=== PATIENT | female | born 1940 | race African-American/Black ===

== ENCOUNTER 2024-07-01 20:14 | Inpatient (IN) | payer MEDICARE, OTHER ==
[~2024-07-01] VITALS: Ht 165.1 cm; Wt 53.5 kg
[~2024-07-01 20:14] MED LIST: ATOR10TA69 PO; DIGO125T80 PO; FURO20TA4 PO; GABA-529 PO; LACO100T2 MT; SPIR25TA6 PO; TRAZ-251 MT; WARF3TAB58 PO
[2024-07-02 00:33] LABS: BASOPHILS % 0.6 % (0.0-2.0); EOSINOPHILS % 0.1 % (0.0-5.0); HEMOGLOBIN. 12.3 g/dL (12.0-16.0); LYMPHOCYTES % 17.2 % (20.0-50.0); MEAN CORPUSCULAR HGB CONC 33.3 g/dL (31.0-37.0); MEAN CORPUSCULAR VOLUME 93.1 fL (81.0-99.0); MEAN PLATELET VOLUME 8.3 fl (7.4-10.4); MONOCYTES % 8.6 % (2.0-8.0); NEUTROPHILS % 73.5 % (40.0-76.0); PLATELET 76 x1000/uL (130-400); RED BLOOD CELL COUNT 3.98 mill/uL (4.2-5.4); RED CELL DISTRIBUTION WIDTH 14.6 % (11.6-14.6); WHITE BLOOD COUNT 2.8 x1000/uL (4.5-11.0)
[2024-07-02 00:45] LABS: CHLORIDE 100 mEq/L (98-107); POTASSIUM 4.5 mEq/L (3.5-5.1); SODIUM 135 mEq/L (136-145)
[2024-07-02 00:46] LABS: INR 2.5; PROTHROMBIN TIME 24.8 sec (9.6-11.0)
[2024-07-02 00:48] LABS: CALCIUM 9.2 mg/dL (8.7-10.4); CARBON DIOXIDE 26 mEq/L (21-32)
[2024-07-02 00:53] LABS: CREATININE 0.9 mg/dL (0.6-1.0); GLUCOSE 98 mg/dL (70-105); UREA NITROGEN BLOOD 11 mg/dL (9-23)
[2024-07-02 00:55] LABS: ALANINE AMINOTRANSFERASE 42 IU/L (10-49); ALBUMIN 3.8 g/dL (3.2-4.8); ASPARTATE AMINOTRANSFERASE 47 IU/L (<34); BILIRUBIN DIRECT 0.6 mg/dL (<=3.0); BILIRUBIN TOTAL 1.5 mg/dL (0.1-1.0)
[2024-07-02 02:09] LABS: DIGOXIN 0.8 ng/mL (0.8-2.0); TROPONIN I HIGH SENSITIVITY 32 ng/L (3.0-34)
[2024-07-02 15:53] VITALS: BP 135/71; PULSE 83; RESP 18; TEMP 36.5
[2024-07-02 16:00] VITALS: BP 135/71; PULSE 83; RESP 18; TEMP 36.4; O2SAT 97
[2024-07-02] MEDS ORDERED: BENZONATATE 100MG CAPSULE PO PRN (17:15)
[2024-07-02] MEDS: DIGOXIN 125MCG TABLET PO SCH (17:39)
[2024-07-02] MEDS: LOSARTAN 25 MG TABLET PO SCH (17:39)
[2024-07-02] MEDS: FUROSEMIDE 20MG TABLET PO SCH (17:39)
[2024-07-02 20:00] VITALS: BP 134/66; PULSE 61; RESP 20; TEMP 37.1; O2SAT 100
[2024-07-02] MEDS: TRAZODONE HCL 50MG TABLET PO SCH (22:13)
[2024-07-02] MEDS: ATORVASTATIN CALCIUM 10MG TABLET PO SCH (22:13)
[2024-07-03] VITALS: BP 146/79; PULSE 64; RESP 18; TEMP 36.7; O2SAT 100
[2024-07-03 04:00] VITALS: BP_SYST 132; BP_SYST 136; BP_DIAS 65; PULSE 73; PULSE 78; RESP 17; RESP 18; TEMP 36.7; TEMP 36.8; O2SAT 99
[2024-07-03 08:00] VITALS: BP 108/38; PULSE 70; RESP 18; TEMP 35.7; O2SAT 97
[2024-07-03] MEDS: CYANOCOBALAMIN 1000MCG TABLET PO SCH (10:25)
[2024-07-03] MEDS: LACOSAMIDE 100MG TABLET PO SCH ×2 (10:25→21:03)
[2024-07-03] MEDS: GABAPENTIN 100MG CAPSULE PO SCH (10:25)
[2024-07-03] MEDS: SPIRONOLACTONE 25MG TABLET PO SCH (10:27)
[2024-07-03] MEDS: LEVOTHYROXINE SODIUM 25MCG TABLET PO SCH (10:28)
[2024-07-03 12:00] VITALS: BP 124/68; PULSE 63; RESP 17; TEMP 36; O2SAT 100
[2024-07-03 16:18] VITALS: BP 99/67; PULSE 67; RESP 17; TEMP 36.2; O2SAT 96
[2024-07-03 20:00] VITALS: BP 119/85; PULSE 76; RESP 18; TEMP 37; O2SAT 98
[2024-07-03] MEDS ORDERED: WARFARIN SODIUM 3MG TABLET PO SCH (21:00)
[2024-07-03] MEDS: WARFARIN SODIUM 3MG TABLET PO SCH (23:51)
[2024-07-04] VITALS (7 sets, daily range): BP systolic 105–119; BP diastolic 47–85; PULSE 56–76; RESP 17–20; TEMP 36.3–36.9; O2SAT 96–99
[2024-07-04 07:12] LABS: HEMATOCRIT 38.2 % (36.0-48.0); MEAN CORPUSCULAR HEMOGLOBIN 30.8 pg (28.0-32.0); MEAN CORPUSCULAR HGB CONC 33.9 g/dL (31.0-37.0); MEAN CORPUSCULAR VOLUME 90.8 fL (81.0-99.0); PLATELET 83 x1000/uL (130-400); RED BLOOD CELL COUNT 4.21 mill/uL (4.2-5.4); RED CELL DISTRIBUTION WIDTH 14.2 % (11.6-14.6); WHITE BLOOD COUNT 2.8 x1000/uL (4.5-11.0)
[2024-07-04 07:26] LABS: INR 1.8; PROTHROMBIN TIME 18.2 sec (9.6-11.0)
[2024-07-04 15:21] LABS: CLARITY URINE CLOUDY (CLEAR); COLOR URINE YELLOW (YELLOW); GLUCOSE URINE NEGATIVE (NEGATIVE); KETONES URINE NEGATIVE (NEGATIVE); LEUKOCYTE ESTERASE URINE TRACE (NEGATIVE); NITRITE URINE POSITIVE (NEGATIVE); OCCULT BLOOD URINE 1+ (NEGATIVE); PROTEIN URINE NEGATIVE (NEGATIVE); SPECIFIC GRAVITY URINE 1.008 (1.005-1.030); UROBILINOGEN URINE 0.2 E.U./dL (0.2-1.0)
[2024-07-04 16:21] LABS: BACTERIA URINE 4+; SQUAMOUS EPITHELIAL CELL URINE 1+ /lpf (RARE/1+); YEAST URINE NONE SEEN
[2024-07-04] MEDS ORDERED: LEVO-65 MT (16:23)
[2024-07-04] MEDS: WARFARIN SODIUM 3MG TABLET PO SCH (18:42)
[2024-07-05] MEDS ORDERED: LEVOFLOXACIN 500MG TABLET PO SCH (11:00)
== END 2024-07-04 19:45 | disposition home or self-care (01) | DRG 70 ==
LOC: ER 20:37 → 6WST 07-02 00:55 → EDBEDREQ 07-02 01:11 → EDBEDREQTM 07-02 01:11
PROVIDERS: ADMIT Internal Medicine; ATTEND Internal Medicine
DX: G93.41 Metabolic encephalopathy (principal); I50.23 Acute on chronic systolic (congestive) heart failure; D68.9 Coagulation defect, unspecified; N39.0 Urinary tract infection, site not specified; I67.82 Cerebral ischemia; G40.909 Epilepsy, unspecified, not intractable, without status epilepticus; I11.0 Hypertensive heart disease with heart failure; F03.90 Unspecified dementia, unspecified severity, without behavioral disturbance, psychotic disturbance, mood disturbance, and anxiety; I48.91 Unspecified atrial fibrillation; Z79.01 Long term (current) use of anticoagulants; Z95.2 Presence of prosthetic heart valve; Z79.899 Other long term (current) drug therapy
CPT/HCPCS: 36415; 71045; 80048; 80076; 80162; 80339; 81003; 83880; 84484; 85025; 85027; 93005; 93306; 99285